=== PATIENT | male | born 1980 | race Caucasian/White ===

== ENCOUNTER 2018-12-07 10:20 | Emergency (ER) | payer BC, OTHER ==
[~2018-12-07] VITALS: Ht 180.3 cm; Wt 85.2 kg
[2018-12-07 10:30] VITALS: BP 129/70
== END 2018-12-07 14:07 | disposition home or self-care (01) ==
LOC: ED 12:20
DX: N20.0 Calculus of kidney (principal); R10.31 Right lower quadrant pain
CPT/HCPCS: 74176; 76870; 81003; 93975; 99284